=== PATIENT | male | born 1970 | race Two or more races ===

== ENCOUNTER → 2025-03-12 | Emergency (ER) | payer OTHER ==
[~2025-03-12] VITALS: Ht 172.7 cm; Wt 90.3 kg
[~2025-03-12] MED LIST: HYDROCODONE/CHLORPHEN P-STIREX 5 ML ML PO ONE; MOUNJARO2.5 MG/0.5 SUBCUTANEO; TUSNEL LIQUID178 ML PO; XIGDUO XR 5 MG1 EAC1 PO; XOPENEX CO1.25 MG/0. IH; ZITHROMAX500 MG PO
[2025-03-12 21:15] VITALS: BP 149/87; O2SAT 96
[2025-03-12 21:34] LABS: BASO % 0.6 % (0.1-1.2); EOS # 0.69 (0.04-0.54); EOS % 5.4 % (0.7-7.0); LYMPH # 2.62 (1.18-3.74); LYMPH % 20.4 % (19.3-53.1); MEAN PLATELET VOLUME 12.20 fl (9.4-12.4); MONO # 0.79 (0.24-0.82); MONO % 6.2 % (4.7-12.5); NEUT # 8.61 (1.56-6.13); NEUT % 67.1 % (34.0-71.1); RED CELL DISTRIBUTION WIDTH 13.3 % (11.6-14.4)
[2025-03-12 21:58] LABS: COVID-19 AG NEGATIVE (NEGATIVE)
== END | disposition home or self-care (01) ==
LOC: ER 20:33
PROVIDERS: General Practice
DX: J06.9 Acute upper respiratory infection, unspecified (principal); E11.9 Type 2 diabetes mellitus without complications; Z79.84 Long term (current) use of oral hypoglycemic drugs; Z20.822 Contact with and (suspected) exposure to COVID-19; Z88.8 Allergy status to other drugs, medicaments and biological substances